=== PATIENT | female | born 1980 | race African-American/Black ===

== ENCOUNTER 2020-04-30 11:46 | Outpatient (CLI) | payer OTHER | END 2020-04-30 11:47 | disposition home or self-care (01) | LOC: LAB 11:46 | DX: Z32.00 Encounter for pregnancy test, result unknown (principal) | CPT/HCPCS: 84702 ==

== ENCOUNTER 2020-12-20 10:28 | Outpatient (CLI) | payer OTHER ==
--- NOTE | 2020-12-23 08:20 | Ultrasound Report ---
LIMITED ULTRASOUND OF LEFT BREAST AND AXILLA: 12/20/2020 CLINICAL: Palpable left breast lumps x 2. Comparison is made to exam dated: 12/20/2020 mammogram - [facility]. Color flow and real-time ultrasound of the left breast 2-3 o'clock, 12 o'clock, and axilla regions we re performed. Tavarez scale images of the real-time examination were reviewed. There is a 1.5 cm x 1.3 cm x 0.5 cm oval mass with a microlobulated margin in the left breast at 12 o 'clock posterior depth 4 cm from the nipple. This correlates as palpated. Color flow imaging demons trates that there is no vascularity present. There also is a benign 2.8 cm x 2.4 cm x 1 cm simple cyst in the left breast at 2 o'clock middle dept h 7 cm from the nipple. This simple cyst is anechoic. This correlates as palpated. Color flow imag ing demonstrates that there is no vascularity present. No significant abnormalities were seen sonographically in the left axilla. IMPRESSION: SUSPICIOUS OF MALIGNANCY The 1.5 cm x 1.3 cm x 0.5 cm oval mass in the left breast at 12 o'clock posterior depth resembles a f ibroadenoma and is at a low suspicion for malignancy. -An ultrasound guided biopsy is recommended. The 2.8 cm simple cyst in the left breast at 2 o'clock middle depth is benign. Exam findings were discussed with the patient by Dr. Calderón. This exam was interpreted at Station ID: [id number]. Electronically Signed By: Dru Muhammad M.D. slc/:12/20/2020 12:19:53 Ultrasound BI-RADS: 4a Low suspicion for malignancy BI-RADS CATEGORY: (4a) - Low Susp None [id number] Immediate follow-up LATERALITY: ()
--- NOTE | 2020-12-23 08:20 | Mammography Report ---
BILATERAL DIGITAL DIAGNOSTIC MAMMOGRAM 3D/2D: 12/20/2020 CLINICAL: Palpable left breast lump. Baseline exam. Baseline exam. No prior exams were available for comparison. The tissue of both breasts is extremely dense, which lowers the sensitivity of mammography. No significant masses, calcifications, or other findings are seen in either breast. IMPRESSION: INCOMPLETE: NEEDS ADDITIONAL IMAGING EVALUATION No mammographic evidence of malignancy. A targeted ultrasound of the left breast palpable abnormalities is recommended and will immediately f ollow. This exam was interpreted at Station ID: [id number]. NOTE: For mammograms, a report in lay terms will be sent to the patient. Approximately 15% of breast malignancies will not be visualized mammographically. In the management of a palpable breast mass, a negative mammogram must not discourage biopsy of a clinically suspicious lesion. Electronically Signed By: Dru Muhammad M.D. slc/:12/20/2020 11:35:18 ACR BI-RADS Category 0: Incomplete 3340F PARENCHYMAL PATTERN: (VD) - The breast(s) demonstrate(s) extremely dense parenchyma, limiting the sen sitivity of mammography. BI-RADS CATEGORY: (0) - 0 Ultrasound [id number] Immediate follow-up LATERALITY: (B)
== END 2020-12-20 10:29 | disposition home or self-care (01) ==
LOC: DI 10:28
PROVIDERS: ATTEND Family Medicine
DX: N63.22 Unspecified lump in the left breast, upper inner quadrant (principal); N60.02 Solitary cyst of left breast

== ENCOUNTER 2021-01-03 12:49 | Outpatient (CLI) | payer OTHER ==
[2021-01-03] MEDS ORDERED: LIDOCAINE 1%-EPI 1:100000 20 ML MDV ONE (12:50)
[2021-01-03] MEDS ORDERED: BUFFERED LIDOCAINE 10 ML SYRINGE ONE (12:50)
[2021-01-03] MEDS: BUFFERED LIDOCAINE 10 ML SYRINGE IU ONE (14:17)
[2021-01-03] MEDS: LIDOCAINE 1%-EPI 1:100000 20 ML MDV IM ONE (14:22)
--- NOTE | 2021-01-06 10:26 | Mammography Report ---
UNILATERAL LEFT DIGITAL DIAGNOSTIC MAMMOGRAM 3D/2D: 01/03/2021 CLINICAL: Post left breast ultrasound biopsy clip placement imaging. Comparison is made to exams dated: 12/20/2020 ultrasound and 12/20/2020 mammogram - [facility]. The tissue of left breast is extremely dense, which lowers the sensitivity of mammogra phy. There is a mass in the left breast seen on the craniocaudal view only. There also is a marker clip in the appropriate position in the left breast at 1 o'clock anterior dept h. This marker clip placement is at the biopsy site. IMPRESSION: POST PROCEDURE MAMMOGRAM FOR MARKER PLACEMENT The mass in the left breast seen on the craniocaudal view only needs additional evaluation. There was a successful marker clip placement in the left breast at 1 o'clock anterior depth. This exam was interpreted at Station ID: [id number]. NOTE: For mammograms, a report in lay terms will be sent to the patient. Approximately 15% of breast malignancies will not be visualized mammographically. In the management of a palpable breast mass, a negative mammogram must not discourage biopsy of a clinically suspicious lesion. Electronically Signed By: You Capps acr/:01/03/2021 14:28:34 ACR BI-RADS Category Post-procedure mammogram for marker placement PARENCHYMAL PATTERN: (VD) - The breast(s) demonstrate(s) extremely dense parenchyma, limiting the sen sitivity of mammography. BI-RADS CATEGORY: () - Unspecified - other recall n/a LATERALITY: (B)
--- NOTE | 2021-01-14 09:26 | Ultrasound Report ---
ULTRASOUND GUIDED BIOPSY LEFT BREAST USING VACUUM DEVICE WITH MARKING DEVICE INSERTED AND POST MAMMOG RAPHIC IMAGIN01/03/2021 CLINICAL: Left breast mass. PATIENT CONSENT: Risks (minor bleeding, infection, vasovagal reaction and repeat procedure), benefits and alternatives were explained to the patient and written informed consent was obtained. Correlation is made to exam dated: 12/20/2020 ultrasound - [facility]. An ultrasound guided biopsy using real-time ultrasound was performed for the 1.3 cm x 0.5 cm x 1.5 cm circumscribed lobulated mass located in the left breast at 12 o'clock posterior depth 4 cm from the nipple. The skin was prepped in the usual manner. Local anesthetic was administered to the access s ite. A small incision was made in the breast. The abnormality was approached from the lateral aspec t. A 13 gauge biopsy needle was placed adjacent to the abnormality under ultrasound guidance. Once the needle was documented to be in the correct location, six specimens were obtained using the autoGraph biopsy system. A T4 clip was inserted into the biopsy cavity. Post procedure mammographic imagi ng demonstrates the location device at the targeted area. The specimens were sent to the laboratory for pathological analysis. IMPRESSION: ULTRASOUND GUIDED BIOPSY BENIGN Ultrasound guided biopsy of the 1.3 cm x 0.5 cm x 1.5 cm mass in the left breast at 12 o'clock health care recruiter ior depth 4 cm from the nipple was successful. Pathology indicates benign fibroadenoma. Pathology r esults are concordant with imaging findings. Recommend clinical follow up for persistent or worsening symptoms, or development of any new clinical ly suspicious findings. Recommend initiating routine screening mammograms at age 40 or ten years earlier than age of breast c ancer diagnosis in a first degree relative given patient's elevated risk of breast cancer. Additional ly, patient has an elevated lifetime risk for breast cancer of greater than 20%. Recommend considera tion for screening breast MRI as an adjunct to screening mammography. This exam was interpreted at Station ID: [id number]. You martinez,aty/:01/13/2021 22:34:21 BI-RADS CATEGORY: () - Unspecified - other recall n/a LATERALITY: (B)
== END 2021-01-03 12:50 | disposition home or self-care (01) ==
LOC: DI 12:49
PROVIDERS: ATTEND Family Medicine
DX: D24.2 Benign neoplasm of left breast (principal)
CPT/HCPCS: 19083

== ENCOUNTER 2021-12-16 08:30 | Outpatient (CLI) | payer OTHER ==
[2021-12-16 08:40] LABS: HCT - HEMATOCRIT 42.5 % (37.0-47.0); MEAN CORPUSCULAR HEMOGLOBIN 30.8 pg (27.0-31.0); MEAN CORPUSCULAR HGB CONC 32.9 g/dL (32.0-36.0); MEAN CORPUSCULAR VOLUME 93.4 fL (81.0-99.0); MEAN PLATELET VOLUME 8.7 fL (7.9-10.8); RED BLOOD COUNT 4.55 10^6/uL (4.20-5.40); RED CELL DISTRIBUTION WIDTH 13.3 % (12.0-15.0); WHITE BLOOD COUNT 7.1 x10^3/uL (4.8-10.8)
[2021-12-16 09:00] LABS: CHOL/HDL RATIO 2.1 (<4.4); CHOLESTEROL 131 mg/dL; HDL CHOLESTEROL 61 mg/dL; LDL CHOLESTEROL,CALCULATED 56 mg/dL; LDL/HDL RATIO 0.9 (<4.4); TRIGLYCERIDES 70 mg/dL; VLDL CHOLESTEROL 14 mg/dL
== END 2021-12-16 08:31 | disposition home or self-care (01) ==
LOC: LAB 08:30
PROVIDERS: ATTEND Obstetrics & Gynecology
DX: Z00.00 Encounter for general adult medical examination without abnormal findings (principal)
CPT/HCPCS: 36415; 80061; 82306; 83721; 84443; 85027

== ENCOUNTER 2022-02-05 16:03 | Outpatient (CLI) | payer OTHER | END 2022-02-05 16:04 | disposition home or self-care (01) | LOC: LAB 16:03 | PROVIDERS: ATTEND Emergency Medicine | DX: Z02.1 Encounter for pre-employment examination (principal) | CPT/HCPCS: 81599; 86480 ==

== ENCOUNTER 2022-06-09 12:25 | Outpatient (CLI) | payer OTHER ==
--- NOTE | 2022-06-10 12:16 | Ultrasound Report ---
LIMITED ULTRASOUND OF RIGHT BREAST: 06/09/2022 CLINICAL: Patient returns today to evaluate a focal asymmetry in the right breast. Comparison is made to exams dated: 06/09/2022 mammogram, 01/03/2021 ultrasound biopsy, 01/03/2021 tiffany mogram, 12/20/2020 ultrasound, and 12/20/2020 mammogram - [facility]. Color flow ultrasound of the right breast 4 o'clock region was performed. Tavarez scale images of the r eal-time examination were reviewed. There is a benign 0.5 cm x 0.3 cm x 0.4 cm wider than tall oval cyst in the right breast at 4 o'clock posterior depth 7 cm from the nipple. This oval cyst is anechoic with a well-defined boundary and p osterior acoustic enhancement. This correlates with mammography findings. Color flow imaging demons trates that there is no vascularity present. IMPRESSION: BENIGN The 0.5 cm x 0.3 cm x 0.4 cm wider than tall oval cyst in the right breast is consistent with a simpl e cyst and is benign. A 1 year screening mammogram is recommended. Findings and recommendations were conveyed to the patient during today's evaluation. This exam was interpreted at Station ID: [id number]. Electronically Signed By: Cedric Tapia M.D. aty/:06/10/2022 10:46:04 Ultrasound BI-RADS: 2 Benign BI-RADS CATEGORY: (2) - 2 Mammogram [id number] 1 year screening LATERALITY: (B)
--- NOTE | 2022-06-10 12:16 | Mammography Report ---
BILATERAL DIGITAL DIAGNOSTIC MAMMOGRAM 3D/2D: 06/09/2022 CLINICAL: Focal left breast pain. Due for bilateral imaging. Comparison is made to exams dated: 01/03/2021 mammogram and 12/20/2020 mammogram - [facility]. Both breasts are extremely dense, which lowers the sensitivity of mammography (category d />75% gland ular tissue). There is a biopsy site marker on the left breast. There are benign grouped calcifications in the lef t breast that are not significantly changed. There is a new oval equal density focal asymmetry in the right breast at 4 o'clock posterior depth. No other significant masses, calcifications, or other findings are seen in either breast. IMPRESSION: INCOMPLETE: NEEDS ADDITIONAL IMAGING EVALUATION The new oval equal density focal asymmetry in the right breast resembles a cyst or a lymph node and i s indeterminate. An ultrasound is recommended. There is no abnormality seen in the left breast to correspond with the area of clinical concern and p alpable abnormality indicated by triangular marker, however, ultrasound is recommended. Based on Tyrer-Cuzick model (a risk assessment model), the patient's lifetime risk is 21.7% and her 1 0 year risk is 2.7%. If a patient has an elevated risk, a more comprehensive evaluation should be con sidered and/or a referral to a genetic counselor. The [place] [employer], [place] [employer], and NCCN Guidelines advise the consideration of Breast MRI as an adjunct to screening mammog scott in patients whose "Lifetime risk to develop breast cancer" is 20% or higher. This exam was interpreted at Station ID: [id number]. NOTE: For mammograms, a report in lay terms will be sent to the patient. Approximately 15% of breast malignancies will not be visualized mammographically. In the management of a palpable breast mass, a negative mammogram must not discourage biopsy of a clinically suspicious lesion. Electronically Signed By: Cedric Tapia M.D. aty/:06/10/2022 11:39:20 ACR BI-RADS Category 0: Incomplete 3340F PARENCHYMAL PATTERN: (VD) - The breast(s) demonstrate(s) extremely dense parenchyma, limiting the sen sitivity of mammography. BI-RADS CATEGORY: (0) - 0 Ultrasound [id number] Immediate follow-up LATERALITY: (B)
--- NOTE | 2022-06-10 12:16 | Ultrasound Report ---
LIMITED ULTRASOUND OF LEFT BREAST: 06/09/2022 CLINICAL: Occasional left breast pain. Comparison is made to exams dated: 06/09/2022 ultrasound, 06/09/2022 ultrasound, 06/09/2022 mammogram, 01/03/2021 ultrasound biopsy, 01/03/2021 mammogram, and 12/20/2020 ultrasound - [facility]. Color flow ultrasound of the left breast 12 o'clock region was performed. There is a 0.8 cm x 0.7 cm x 0.7 cm oval mass with lobulated margins in the left breast at 12 o'clock posterior depth 4 cm from the nipple. This oval mass is hypoechoic. This abnormality is less promi nent and correlates as palpated, with area of clinical concern, and the previous biopsy. There is an associated biopsy clip. Color flow imaging demonstrates that there is no vascularity present. IMPRESSION: BENIGN There is no sonographic evidence of malignancy. The 0.8 cm x 0.7 cm x 0.7 cm oval mass in the left breast is a biopsy proven benign finding and corre lates with site of patient concern. Recommend clinical follow up for persistent or worsening symptoms , or development of any clinically suspicious findings. A 1 year screening mammogram is recommended. Findings and recommendations were conveyed to the patient during today's evaluation. This exam was interpreted at Station ID: [id number]. Electronically Signed By: Cedric Tapia M.D. aty/:06/10/2022 10:44:34 Ultrasound BI-RADS: 2 Benign BI-RADS CATEGORY: (2) - 2 Mammogram [id number] 1 year screening LATERALITY: (B)
== END 2022-06-09 12:26 | disposition home or self-care (01) ==
LOC: DI 12:25
PROVIDERS: ATTEND Physician Assistant
DX: N60.01 Solitary cyst of right breast (principal); R92.8 Other abnormal and inconclusive findings on diagnostic imaging of breast; N64.4 Mastodynia

== ENCOUNTER 2023-04-08 07:51 | Outpatient (CLI) | payer OTHER ==
--- NOTE | 2023-04-09 09:13 | Ultrasound Report ---
LIMITED ULTRASOUND OF LEFT BREAST: 04/08/2023 CLINICAL: Palpable left breast lump. Comparison is made to exams dated: 04/08/2023 mammogram, 06/09/2022 ultrasound, 06/09/2022 ultrasound, 06/09/2022 mammogram, 01/03/2021 ultrasound biopsy, [facility] Color flow and real-time ultrasound of the left breast 2 o'clock and 12 o'clock regions were perform ed. Tavarez scale images of the real-time examination were reviewed. There is a benign 3.2 cm x 0.9 cm simple cyst in the left breast at 2 o'clock middle depth. This cor relates as palpated. IMPRESSION: BENIGN There is no sonographic evidence of malignancy. The 3.2 cm x 0.9 cm simple cyst in the left breast is benign. Return to annual mammogram screening schedule is recommended. This is amenable to aspiration if clinically desired. This appears separate from the previously biopsied mass at 12:00. This exam was interpreted at Station ID: [id number]. Electronically Signed By: Robert Cintron M.D. lc/:04/08/2023 09:06:53 letter sent: No_Letter Ultrasound BI-RADS: 2 Benign BI-RADS CATEGORY: (2) - 2 RECOMMENDATION: (ANNUAL) - Recommend routine annual screening mammography. [id number] return to screening LATERALITY: (B)
--- NOTE | 2023-04-09 09:13 | Mammography Report ---
BILATERAL DIGITAL DIAGNOSTIC MAMMOGRAM 3D/2D WITH LATEROMEDIAL SPOT COMPRESSION: 04/08/2023 CLINICAL: Palpable left breast lump. Focal left breast pain. Due for bilateral exam. Comparison is made to exams dated: 06/09/2022 mammogram, 01/03/2021 mammogram, and 12/20/2020 mammogr - [facility]. Both breasts are extremely dense, which lowers the sensitivity of mammography (category d />75% gland ular tissue). There is a 3 cm mass in the left breast at 1 o'clock middle depth. This correlates as palpated. No other significant masses, calcifications, or other findings are seen in either breast. Other presumed bilateral benign masses are present. Left biopsy clip. IMPRESSION: INCOMPLETE: NEEDS ADDITIONAL IMAGING EVALUATION The 3 cm mass in the left breast is indeterminate. An ultrasound is recommended. Based on Tyrer-Cuzick model (a risk assessment model), the patient's lifetime risk is 31.8% and her 1 0 year risk is 4.6%. If a patient has an elevated risk, a more comprehensive evaluation should be con sidered and/or a referral to a genetic counselor. The [place] [employer], [employer], and NCCN Guidelines advise the consideration of Breast MRI as an adjunct to screening mammog scott in patients whose "Lifetime risk to develop breast cancer" is 20% or higher. This exam was interpreted at Station ID: [id number]. NOTE: For mammograms, a report in lay terms will be sent to the patient. Approximately 15% of breast malignancies will not be visualized mammographically. In the management of a palpable breast mass, a negative mammogram must not discourage biopsy of a clinically suspicious lesion. Electronically Signed By: Robert Cintron M.D. lc/:04/08/2023 09:03:20 ACR BI-RADS Category 0: Incomplete 3340F PARENCHYMAL PATTERN: (VD) - The breast(s) demonstrate(s) extremely dense parenchyma, limiting the sen sitivity of mammography. BI-RADS CATEGORY: (0) - 0 Ultrasound [id number] Immediate follow-up LATERALITY: (B)
== END 2023-04-08 07:52 | disposition home or self-care (01) ==
LOC: DI 07:51
PROVIDERS: ATTEND Physician Assistant
DX: N60.02 Solitary cyst of left breast (principal); N64.4 Mastodynia

== ENCOUNTER 2023-06-01 07:30 | Day surgery (SDC) | payer OTHER ==
[~2023-06-01 07:30] MED LIST: ceFAZolin 2 GM VIAL ONE
[2023-06-01] MEDS: LACTATED RINGERS 1,000 ML IV ONE ×2 (07:31→10:10)
[2023-06-01] MEDS ORDERED: BUPIVACAINE 0.25% PF 30 ML VIAL ONE (07:44)
[2023-06-01] MEDS ORDERED: PROPOFOL 200 MG/20 ML VIAL IVP ONE (08:14)
[2023-06-01] MEDS ORDERED: MIDAZOLAM 2 MG/2 ML VIAL ONE (08:14)
[2023-06-01] MEDS ORDERED: LIDOCAINE-PF 2% 10 ML AMP SUBQ ONE (08:14)
[2023-06-01] MEDS ORDERED: fentaNYL 100 MCG/2 ML VIAL ONE ×2 (08:15→09:01)
--- NOTE | 2023-06-01 08:31 | ANESTHESIA ---
Pre-Anesthesia VS, & Labs - Diagnosis left breast lump - Procedure breast mass excision, left Height: 5 ft 2 in Weight (kg): 60.6 kg Body Mass Index: 24.4 BMI Classification: Normal - NPO >8 hours - Is Patient ?: Waiver signed Home Medications and Allergies Home Medications: Ambulatory Orders Doxycycline [Vibramycin] 100 mg PO BID 06/01/23 Doxycycline [Vibramycin] 100 mg PO BID 06/01/23 Allergies/Adverse Reactions: Allergies Allergy/AdvReac Type Severity Reaction Status Date / Time No Known Drug Allergies Allergy Verified 06/01/23 07:58 Anes History & Medical History - Anesthetic History Anesthesia Complications: reports: No previous complications - Medical History Cardiovascular: reports: Other (history of TOF repair) Pulmonary: reports: None Gastrointestinal: reports: None Urinary: reports: None Musculoskeletal: reports: None Endocrine/Autoimmune: reports: None Skin: reports: None Smoking Status: Never smoker - Surgical History Cardiothoracic: reports: Other Gynecologic: reports: section, Other Exam General: Alert, Oriented x3 Dental: WNL Mouth Opening: Greater than 4 Fingerbreadths Neck Mobility: Normal Mallampati classification: III Thyromental Distance: greater than 6 cm Respiratory: Lungs clear Cardiovascular: Regular rate, Other (murmur, sees cardiology yearly at , states no changes in last echo) Plan Anesthesia Type: General Consent for Procedure(s) Verified and Reviewed: Yes Code Status: Attempt Resuscitation ASA classification: 2-Mild systemic disease Is this case an emergency?: No
[2023-06-01] MEDS ORDERED: ONDANSETRON 4 MG/2 ML VIAL ONE (09:22)
[2023-06-01] MEDS ORDERED: DEXAMETHASONE 4 MG/ML VIAL ONE (09:22)
[2023-06-01] MEDS ORDERED: ONDANSETRON 4 MG/2 ML VIAL IVP PRN (09:33)
[2023-06-01] MEDS ORDERED: MORPHINE 2 MG/ML CARPUJECT IVP PRN (09:33)
[2023-06-01] MEDS ORDERED: ATROPINE ABBOJECT 1 MG/10 ML SYRINGE IVP PRN (09:33)
[2023-06-01] MEDS ORDERED: HYDROmorphone 0.5 MG/0.5 ML SYRINGE IVP PRN (09:33)
[2023-06-01] MEDS ORDERED: NALOXONE 0.4 MG/ML VIAL IVP PRN (09:33)
[2023-06-01] MEDS ORDERED: ePHEDrine 50 MG/ML VIAL IVP PRN (09:33)
[2023-06-01] MEDS ORDERED: METOCLOPRAMIDE 10 MG/2 ML VIAL IVP PRN (09:33)
[2023-06-01] MEDS ORDERED: fentaNYL 100 MCG/2 ML VIAL IVP PRN (09:33)
[2023-06-01] MEDS: BUPIVACAINE 0.25% PF 30 ML VIAL SUBQ ONE (09:35)
[2023-06-01] MEDS ORDERED: LACTATED RINGERS 1,000 ML IV SCH (10:00)
--- NOTE | 2023-06-01 10:21 | OPERATIVE REPORT ---
Operative Report - General Procedure Date: 06/01/23 Planned Procedure: LEFT excisional breast biopsy Pre-Op Diagnosis: LEFT breast/cyst (symptomatic) Procedure Performed: LEFT excisional breast biopsy Post Op Diagnosis: Symptomatic LEFT breast/cyst - Procedure Note Primary Surgeon: Amrik Rubio MD Anesthesia Provider: Aimee Simmons CRNA Anesthesia Technique: General LMA, Local (30 mL of quarter percent Marcaine) IV Fluids (mL): 500 Estimated Blood Loss (mL): 2 Drain/Tube Type: Other (None.) Indications: Increasingly symptomatic (painful) LEFT breast mass/cyst. Findings: LEFT breast/cyst at the 2 o'clock position at moderate depth Complications: None. - Other Other Information/Narrative: After verbal and written informed consent was obtained detailing the operation, the alternatives the operation including no operation, risks of infection, bleeding requiring transfusion with its risks, and and after I met with the patient confirming the surgery and the site of surgery (and marking it), the patient was brought to the operative suite and placed supine on the operating table. Great care was taken to avoid pressure points to prevent pressure necrosis or nerve injury. Monitoring devices were applied along with TEDs and pneumatic compression stockings (to prevent DVT). The patient received preoperative antibiotics for surgical prophylaxis. Aimee Simmons CRNA sedated and anesthetized the patient for the entire procedure. The patient was prepped and draped in the usual sterile manner. With the patient draped my initials were clearly visible. A "time in" then confirmed that the patient was identified with 3 identifiers (name, date, and medical record number), the history and physical was updated and in the chart, the signed consent confirming the procedure was in the chart, the patient was in the correct position, the aforementioned prophylactic measures were in place or given, we had the correct personnel and equipment to complete the procedure and that anesthesia and the surgical team were given an opportunity to express any concerns. With the agreement of everyone in the room we proceeded with the operation. A curvilinear incision was made at the areolar-skin junction and dissection was carried out down to the mass primarily using Bovie electrocautery. Meticulous hemostasis was achieved using Bovie electrocautery. The lesion was excised with a small margin of normal tissue surrounding it. The reason for this was that the concern for malignancy was low. Once the mass was completely excised it was then marked with a short silk stitch superiorly, a long silk stitch laterally, and a double stitch deep. The specimen was sent off the operative field and permission was given to send it to pathology. The cavity was examined and meticulous hemostasis was again noted after application of Bovie electrocautery. Digital and visual examination of the cavity did not reveal any tissue that raised concern. The subcutaneous tissues were approximated using interrupted simple 3-0 Vicryl suture. The skin incision was approximated with 4-0 Monocryl in a subcuticular fashion. The cavity and overlying skin was then injected using all of the quarter percent Marcaine. The skin was cleaned of its prep and Dermabond was applied. At this point a timeout was performed that confirmed that all counts were correct x2, the procedure that was performed, the blood loss, the IV fluids administered, the patient's condition, and any concerns of the operating team had. Having tolerated the procedure well, the patient was taken recovery room in good and stable condition. The plan is for outpatient discharge when the patient is adequately recovered. CPT 03204 This document was created in part using voice recognition technology. Because of the inherent limitations of the system, occasional same sounding word substitutions and grammatical errors do occur and persist despite proofreading. Please read this document for content.
[2023-06-01] MEDS ORDERED: HYDROcod/ACETAM 5/325 MG TABLET ONE (10:54)
[2023-06-01] MEDS: HYDROcod/ACETAM 5/325 MG TABLET PO PRN (11:05)
--- NOTE | 2023-06-01 11:22 | ANESTHESIA POST OP EVALUATION ---
Anesthesia Post Eval - Post Anesthesia Eval Vitals: Last Vital Signs Temp 36.6 C 06/01/23 11:00 Pulse 73 06/01/23 11:00 Resp 14 06/01/23 11:00 BP 150/91 H 06/01/23 11:00 Pulse Ox 98 06/01/23 11:00 O2 Flow Rate CV Function Including HR & BP: Stable Pain Control: Satisfactory Nausea & Vomiting: Negative Mental Status: Baseline Respiratory Status: Airway Patent Hydration Status: Satisfactory Anesthesia Complications: None
[2023-06-01 11:28] VITALS: BP 156/86; O2SAT 99
== END 2023-06-01 07:31 | disposition home or self-care (01) ==
LOC: SDS 07:30
PROVIDERS: ATTEND Surgery
PROC: 0HBU0ZX Excision of Left Breast, Open Approach, Diagnostic (ICD-10-PCS; principal; 2023-06-01 08:30)
DX: N60.02 Solitary cyst of left breast (principal); N64.4 Mastodynia
CPT/HCPCS: 19120; A9270; J7120; 81025